=== PATIENT | male | born 1995 | race African-American/Black ===

== ENCOUNTER 2023-08-15 06:33 | Emergency (ER) | payer OTHER ==
[~2023-08-15] VITALS: Ht 170.2 cm; Wt 106.6 kg
[2023-08-15 09:03] LABS: HEMATOCRIT 42.9 % (39.0-48.0); MEAN CELL VOLUME 75.6 fL (80.0-100.00); MEAN CORPUSCULAR HEMOGLOBIN 24.6 pg (27.00-32.0); MEAN CORPUSCULAR HGB CONC 32.6 g/dl (32.0-36.0); PLATELET COUNT 249 K/uL (150-450); RED BLOOD COUNT 5.68 M/uL (4.00-6.00); RED CELL DISTRIBUTION WIDTH 14.1 % (11.5-14.5)
[2023-08-15] MEDS ORDERED: ZITHROMAX500 MG PO (09:40)
== END 2023-08-15 10:14 | disposition home or self-care (01) ==
LOC: ER 06:33
PROVIDERS: Emergency Medicine
DX: R53.81 Other malaise (principal); J06.9 Acute upper respiratory infection, unspecified; Z20.822 Contact with and (suspected) exposure to COVID-19

== ENCOUNTER 2023-12-21 05:40 | Emergency (ER) | payer OTHER ==
[~2023-12-21] VITALS: Ht 170.2 cm; Wt 108.9 kg
[~2023-12-21 05:40] MED LIST: ZITHROMAX500 MG PO
[2023-12-21] MEDS ORDERED: DEXAMETHASONE SODIUM PHOSPHATE 4 MG/ML VIAL IM STA (08:36)
[2023-12-21] MEDS ORDERED: ORPHENADRINE CITRATE 30 MG/ML AMPUL IM STA (08:36)
[2023-12-21] MEDS ORDERED: DEXAMETHASONE SODIUM PHOSPHATE 4 MG/ML VIAL ONE (08:43)
[2023-12-21] MEDS ORDERED: ORPHENADRINE CITRATE 30 MG/ML AMPUL ONE (08:43)
[2023-12-21] MEDS ORDERED: [UNRECOGNIZED DRUG - OTHER] PO (10:55)
== END 2023-12-21 11:10 | disposition home or self-care (01) ==
LOC: ER 05:42
DX: S43.402A Unspecified sprain of left shoulder joint, initial encounter (principal); X58.XXXA Exposure to other specified factors, initial encounter; Y93.89 Activity, other specified; Y92.89 Other specified places as the place of occurrence of the external cause; Y99.9 Unspecified external cause status

== ENCOUNTER 2024-05-20 20:32 | Emergency (ER) | payer OTHER ==
[~2024-05-20] VITALS: Ht 170.2 cm; Wt 113.4 kg
[~2024-05-20 20:32] MED LIST changes: +[UNRECOGNIZED DRUG - OTHER] PO
[2024-05-20] MEDS ORDERED: KETOROLAC TROMETHAMINE 60 MG VIAL IM ONE ×2 (21:00→21:14)
[2024-05-20 21:41] LABS: HEMATOCRIT 42.9 % (39.0-48.0); HEMOGLOBIN 13.8 g/dL (13-16.00); MEAN CELL VOLUME 76.6 fL (80.0-100.00); MEAN CORPUSCULAR HEMOGLOBIN 24.7 pg (27.00-32.0); MEAN CORPUSCULAR HGB CONC 32.3 g/dl (32.0-36.0); PLATELET COUNT 221 K/uL (150-450)
[2024-05-20 22:10] LABS: ALBUMIN 3.7 gm/dL (3.4-5.0); BILIRUBIN TOTAL 0.4 mg/dL (0.3-1.2); CALCIUM 9.2 mg/dL (8.5-10.1); CREATININE SERUM 1.02 mg/dL (0.70-1.30); GFR 85.75; GLOBULINA 3.7 G/DL (2.4-3.5); POTASSIUM 3.8 mEq/L (3.5-5.1); TOTAL PROTEIN 7.4 gm/dL (6.4-8.2)
[2024-05-20 23:51] LABS: PH,URINE 5.5 (5.0-8.0); URINE APPEARANCE Clear; URINE BILIRRUBIN Negative (NEGATIVE); URINE BLOOD Negative; URINE COLOR Yellow; URINE GLUCOSE Negative (NEGATIVE); URINE KETONE Negative (NEGATIVE); URINE LEUKOCYTE Trace; URINE NITRATE Negative; URINE PROTEIN Negative (NEGATIVE); URINE UROBILINOGEN 0.2 E.U./dl
[2024-05-20 23:55] LABS: URINE BACTERIA 13.4 uL (0.0-1933); URINE EPITHELIAL CELLS 3.7 uL (0.0-38.8); URINE WBC 27.9 uL (0.0-23.2)
[2024-05-21] LABS: URINE CAST 0.44 uL (0.0-1.40); URINE RBC 1.4 uL (0.0-20.8)
== END 2024-05-21 00:02 | disposition home or self-care (01) ==
LOC: ER 20:35
PROVIDERS: General Practice
DX: M62.838 Other muscle spasm (principal)